=== PATIENT | male | born 1990 | race Two or more races ===

== ENCOUNTER 2020-12-19 17:32 | Emergency (ER) | payer OTHER ==
[~2020-12-19] VITALS: Ht 172.7 cm; Wt 90.7 kg
[2020-12-19] MEDS ORDERED: SODIUM CHLORIDE 0.9% 1,000 ML IV ONE ×3 (18:15→21:45)
[2020-12-19] MEDS ORDERED: LORazepam 2MG/ML-1ML VIAL IV ONE ×2 (18:15→22:30)
[2020-12-19 18:54] LABS: Basophils # (auto) 0.1 10 ^3/uL (0-0.2); Eosinophils # (auto) 0 10 ^3/uL (0-0.8); Eosinophils % (auto) 0.2 % (0.0-7.0); Hematocrit 43.8 % (41.0-53.0); Lymphocytes # (auto) 1.4 10 ^3/uL (0.4-5.4); Lymphocytes % (auto) 14.5 % (10.0-50.0); Mean Corpuscular Hemoglobin 33.4 pg (28.0-32.0); Mean Corpuscular Hgb Conc. 34.2 g/dL (32.0-36.0); Mean Corpuscular Volume 97.8 fL (80.0-100.0); Monocytes # (auto) 0.8 10 ^3/uL (0-1.3); Monocytes % (auto) 7.9 % (0.0-12.0); Neutrophils # (auto) 7.5 10 ^3/uL (1.6-8.6); Neutrophils % (auto) 76.4 % (37.0-80.0); Nucleated Red Blood Cells % 0.1 %; Platelet Count (auto) 271 10^3/uL (140-450); Red Blood Cells 4.48 10^6/uL (4.5-5.90); Red Cell Distribution Width 12.9 % (11.8-14.3); White Blood Cell 9.8 10^3/uL (4.4-10.8)
[2020-12-19 19:08] LABS: Albumin 4.2 g/dL (3.4-5.0); Anion Gap 8 (5-15); Blood Urea Nitrogen 11 mg/dL (7-18); Calcium 8.8 mg/dL (8.5-10.1); Carbon Dioxide 25 mmol/L (21-32); Chloride 108 mmol/L (98-107); Glucose 85 mg/dL (74-106); Magnesium 2.2 mg/dL (1.6-2.6); Potassium 3.9 mmol/L (3.5-5.1); Sodium 141 mmol/L (136-145)
[2020-12-19 19:10] LABS: Alanine Aminotransferase 59 U/L (16-61); Aspartate Aminotransferase 18 U/L (15-37); BUN/Creatinine Ratio 8.9; Blood Alcohol < 3.0 mg/dL (0-5); GFR African American 89 mL/min; GFR Non-African American 73 mL/min
[2020-12-19 19:14] LABS: INR 1.04 (0.9-1.15); Partial Thromboplastin Time 28.8 sec (23.0-31.2)
[2020-12-19 19:16] LABS: Alkaline Phosphatase 103 U/L (45-117); Bilirubin, Total 0.8 mg/dL (0.2-1.0); Total Protein 8.1 g/dL (6.4-8.2)
[2020-12-19] MEDS ORDERED: levETIRAcetam 500 MG/5ML INJ IV ONE (22:09)
[2020-12-19 22:28] VITALS: BP 129/72
[2020-12-19] MEDS ORDERED: diphenhdrAMINE HCL 50 MG/1 ML VL IV ONE (22:30)
== END 2020-12-19 22:29 | disposition left against medical advice (07) ==
LOC: ER 17:32 → EDBD 17:32 → ER 22:29
DX: R41.82 Altered mental status, unspecified (principal); G40.409 Other generalized epilepsy and epileptic syndromes, not intractable, without status epilepticus
CPT/HCPCS: 36415; 70450; 80053; 80320; 83735; 84484; 85025; 85610; 85730; 96361; 96374; 99284; J1953; J2060; J7060